=== PATIENT | male | born 1950 | race Caucasian/White ===

== ENCOUNTER 2022-03-05 09:21 | Outpatient (CLI) | payer MEDICARE | END 2022-03-05 09:22 | disposition home or self-care (01) | LOC: BURRAD 09:21 | PROVIDERS: ATTEND Orthopaedic Surgery | DX: M54.50 Low back pain, unspecified (principal); Z98.1 Arthrodesis status | CPT/HCPCS: 72100 ==

== ENCOUNTER 2024-07-20 13:32 | Outpatient (CLI) | payer MEDICARE | END 2024-07-20 13:33 | disposition home or self-care (01) | LOC: BURRAD 13:32 | PROVIDERS: ATTEND Orthopaedic Surgery | DX: M46.1 Sacroiliitis, not elsewhere classified (principal); M16.0 Bilateral primary osteoarthritis of hip; Z98.1 Arthrodesis status | CPT/HCPCS: 72190 ==